=== PATIENT | male | born 1990 | race Caucasian/White ===

== ENCOUNTER 2019-11-04 15:44 | Emergency (ER) | payer SELFPAY ==
[2019-11-04 16:13] VITALS: BP 135/93; PULSE 103; RESP 16; TEMP 36.6; O2SAT 98; BMI 29.0
--- NOTE | 2019-11-04 16:38 | W.ED.ANIMALB ---
HPI - Animal Bite General: Chief Complaint: Animal Bite Stated Complaint: animal bites on hand Time Seen by Provider: 11/04/19 16:26 History of Present Illness: HPI narrative: And to pull a tick off dog and the dog bit him multiple times in his hands he has various abrasions bite whelan dogs up-to-date on vaccinations MD complaint: animal bite Onset (ago): minute(s) Animal: dog Description of animal: immunizations UTD Mechanism: bite and scratch Location: other (Hands) Pain description: sharp Severity scale (1-10): 3 Context: other (Try to get to call for dog) Associated symptoms: Deny chills, fever(s) or headache(s) Treatments prior to arrival: wound dressing(s) and irrigation Review of Systems Const: Denies: fever(s), chills or body aches Eyes: Denies: change in vision or blurry vision ENMT: Denies: throat pain or nasal congestion Card: Denies: chest pain or dyspnea on exertion Resp: Denies: dyspnea, productive cough or non-productive cough GI: Denies: abdominal pain, nausea or vomiting : Denies: difficulty urinating Musc: Denies: extremity pain Skin/Breast: Reports: other (Multiple bites to both hands and scratches to the arms); Denies: rash Neuro: Denies: headache(s) Psych: Denies: anxiety or depression Tony/Lymph: Denies: easy bruising All/Imm: Reports: other (Tetanus is up-to-date) PFSH ED PFSH: Social History Smoking and tobacco status: never smoked Physical Exam Const: COMMON NORMALS: no acute distress, average body habitus and patient oriented x3 HENMT: COMMON NORMALS: normocephalic HEAD & SCALP: normal to inspection and normocephalic FACE & SINUS: normal facial exam Eye: COMMON NORMALS: conjunctivae normal GENERAL EYE: appearance normal, both eyes and all related structures CONJUNCTIVA: Yes conjunctivae normal Neck/C-Spine: COMMON NORMALS: no JVD Chest: COMMONS NORMALS: normal inspection of the chest Resp: COMMON NORMALS: normal respiratory effort and clear to auscultation bilaterally AUSCULTATION: clear to auscultation bilaterally Cardio: COMMON NORMALS: no JVD, regular rate and regular rhythm RATE: regular rate RHYTHM: regular rhythm GI: COMMON NORMALS: Normal to inspection, nondistended, normoactive bowel sounds present Extremity: COMMON NORMALS: normal to inspection and full ROM Neuro: COMMON NORMALS: patient oriented x3 Skin: OTHER: Patient has multiple bites and scratches to his arms and to his hands has 2 superficial lacks to his left index finger and left thumb at the base of the nail Procedures Laceration Laceration 1: Site: hand Side (If applicable): left Size (cm): 1 Description: linear Depth: simple, single layer Size (cm): other (Glue) Course Vital Signs: Vital signs: Vital Signs Temperature 97.9 F 11/04/19 16:13 Pulse Rate 103 H 11/04/19 16:13 Respiratory Rate 16 11/04/19 16:13 Blood Pressure 135/93 11/04/19 16:13 Pulse Oximetry 98 11/04/19 16:13 Discharge Plan Discharge Patient Disposition: Home, Self-Care Clinical Impression: Dog bite Qualifiers: Encounter type: initial encounter Qualified Code(s): W54.0XXA - Bitten by dog, initial encounter Condition: Stable Prescriptions: New Augmentin 875-125 mg tablet 1 tab PO BID Qty: 14 RF: 0 No Action Multiple Vitamins Tablet 1 tab PO DAILY RF: 0 turmeric 400 mg Capsule 400 mg PO DAILY RF: 0 Emergen-C See Rx Instructions .ROUTE .COMPLEX RF: 0 omeprazole 1 tab PO DAILY RF: 0 Discharge Orders: Discharge Order (Routine); Ordered 11/04/19 Ordered By: Indio Millan Discharge Diet: Usual diet Discharge Activity: Resume usual activity Patient Instructions: Animal Bite (ED) Activity Restrictions/Additional Instructions: Follow-up with medical provider as directed. Take medications as prescribed. Return to the ER or your medical provider if condition worsens. Please read and understand discharge instructions. If any questions ask please. Keep wound clean and dry wear dressing for least 24 hours follow-up if signs symptoms of infection develop Coding Level of Care Code ED Artillery Meteorological Man for Gama Fwmichael Exam Comprehensive
[2019-11-04] MEDS: amoxicillin-clav 875-125 mg Tablet 1 TAB PO (16:46)
[2019-11-04 16:47] VITALS: BP 119/70; PULSE 102; RESP 16; O2SAT 97
== END 2019-11-04 16:50 | disposition home or self-care (01) ==
PROVIDERS: Emergency Provider Nurse Practitioner Family
DX: S61.452A Open bite of left hand, initial encounter (principal); S61.451A Open bite of right hand, initial encounter; S41.152A Open bite of left upper arm, initial encounter; S41.151A Open bite of right upper arm, initial encounter; S61.251A Open bite of left index finger without damage to nail, initial encounter; S61.052A Open bite of left thumb without damage to nail, initial encounter; W54.0XXA Bitten by dog, initial encounter
CPT/HCPCS: 12001; 12345; 99281; 99283

== ENCOUNTER 2020-01-05 15:27 | Emergency (ER) | payer SELFPAY ==
[2020-01-05 16:00] VITALS: BP 119/69; PULSE 68; RESP 18; TEMP 36.6; O2SAT 98; BMI 29.4
--- NOTE | 2020-01-05 18:38 | ED_ITS ---
HPI - Abdominal Pain General: Chief Complaint: Abdominal Pain Stated Complaint: ULCER FLARE UP Time Seen by Provider: 01/05/20 18:35 Source: patient Mode of arrival: ambulatory Limitations: no limitations History of Present Illness: HPI narrative: Well-appearing adult male comes in with midepigastric pain, nausea with vomiting of bile with streaked blood. Patient appears well. Patient appears in no acute distress. Patient does have abdominal tenderness and concern for blood in the vomitus. Patient does have a history of peptic ulcer disease. Associated Symptoms: Reports hematemesis and nausea Review of Systems General: Reports: 10 or more systems reviewed and unremarkable except in HPI and below GI: Reports: nausea and hematemesis PFS ED PFSH: Social History Smoking and tobacco status: current some day smoker cigarettes [ Other cigarette details: occasional- few times a month ] Quit status (tobacco): not considering quitting Second hand smoke exposure: No Alcohol intake: current Alcohol intake frequency: holidays/special occasions only History of recent travel: No Current gender identity: Male Physical Exam Const: COMMON NORMALS: no acute distress and patient oriented x3 GENERAL APPEARANCE: cooperative HENMT: COMMON NORMALS: normocephalic and Normal external nose present HEAD & SCALP: normal to inspection and normocephalic NOSE: Normal external nose present MOUTH: Normal oral and palatal mucosa present Eye: GENERAL EYE: appearance normal, both eyes and all related structures Neck/C-Spine: COMMON NORMALS: full ROM Chest: COMMONS NORMALS: normal inspection of the chest Resp: COMMON NORMALS: normal respiratory effort EFFORT & INSPECTION: Yes able to speak in complete sentences Cardio: COMMON NORMALS: regular rate and regular rhythm RATE: regular rate RHYTHM: regular rhythm GI: COMMON NORMALS: Soft to palpation PALPATION: Yes Soft to palpation and Yes Tenderness to palpation present (GI) (epigastric) Back/Pelvis: COMMON NORMALS: thoracic and lumbar spine normal to inspection Extremity: COMMON NORMALS: normal to inspection Neuro: COMMON NORMALS: patient oriented x3 and moves all extremities Psych: COMMON NORMALS: mental status grossly normal and cooperative Skin: COMMON NORMALS: no rashes or lesions noted GENERAL SKIN EXAM: no rashes or lesions noted Course Vital Signs: Vital signs: Vital Signs Temperature 97.6 F 01/05/20 19:58 Pulse Rate 60 01/05/20 21:13 Respiratory Rate 18 01/05/20 21:08 Blood Pressure 116/68 01/05/20 21:13 Pulse Oximetry 99 01/05/20 21:08 MDM - Abdominal Pain MDM Narrative: Medical decision making narrative: Patient comes in today for complaints of emesis with bile and streaks of blood in it. Patient does have a history of peptic ulcer disease that he has had treatment before in the past. Exam notes abdomen is soft with some midepigastric tenderness. Bowel sounds are present throughout. Vital signs are normal. Differential diagnosis includes GI bleed, peptic ulcer disease, esophagitis, gastritis. Laboratory values noted a normal hemoglobin hematocrit. CMP was normal. Lipase was normal. CT scan was ordered due to blood in emesis. CT scan noted no abnormalities. Patient was given Protonix for the treatment of his gastritis/peptic ulcer disease. Patient will be continued on pantoprazole and Carafate. Reviewed treatment with patient and his spouse who agreed to treatment plan and need for follow-up. Lab Data: Labs: Lab Results 01/05/20 01/05/20 01/05/20 Range/Units 19:21 19:21 19:36 WBC 7.8 (4.0-10.0) 10^3/ uL RBC 4.81 (4.1-5.3) 10^6/u L Hgb 14.3 (11.7-16.6) g/dL Hct 44.5 (42.0-52.0) % MCV 92.5 (80-94) fL MCH 29.7 (28.0-34.0) pg MCHC 32.1 (30.0-36.0) g/dL RDW 12.8 (12.1-15.1) % Plt Count 253 (130-400) 10^3/c mm MPV 10.0 (7.4-10.4) fL Neut % (Auto) 50.4 % Lymph % (Auto) 38.3 % [place] % (Auto) 8.1 % Eos % (Auto) 2.2 % Baso % (Auto) 0.6 % Neut # (Auto) 3.93 (1.8-7.7) 10^3/u L Lymph # (Auto) 3.0 (0.8-4.8) 10^3/u L [place] # (Auto) 0.6 (0.2-0.9) 10^3/u L Eos # (Auto) 0.2 (0.0-0.8) 10^3/u L Baso # (Auto) 0.1 (0.0-0.1) 10^3/u L Nucleated RBC % (a uto) 0 % Nucleated RBCs # 0.0 /100WBC Sodium 139 (136-145) mmol/L Potassium 4.0 (3.5-5.1) mmol/L Chloride 101 (98-107) mmol/L Carbon Dioxide 28 (22-29) mmol/L Anion Gap 14.0 (5-19) BUN 9 (6-20) mg/dL Creatinine 1.1 (0.7-1.2) mg/dL GFR Calculation 78.1 L (90-130) mL/min Glucose 90 (65-115) mg/dL Calculated Osmolal ity 284 L (285-295) mOsm/k g Calcium 9.6 (8.5-10.5) mg/dL Total Bilirubin 0.3 (0.15-1.2) mg/dL AST 28 (0-40) U/L ALT 45 H (0-41) U/L Alkaline Phosphata se 71 (40-130) IU/L Total Protein 7.5 (6.6-8.7) g/dL Albumin 5.1 (3.5-5.2) g/dL Globulin 2.4 (1.3-4.6) g/dL Lipase 23 (13-60) U/L Urine Color Yellow (Yellow) Urine Appearance Clear (CLEAR) Urine pH 6.5 (5-7) Ur Specific Gravit y 1.020 (1.005-1.030) Urine Protein Neg (Negative) Urine Glucose (UA) Norm (Normal) Urine Ketones Negative (Negative) Urine Blood Neg (Negative) Urine Nitrate Negative (Negative) Urine Bilirubin Neg (NEGATIVE) Urine Urobilinogen Norm (Negative) mg/dL Ur Leukocyte Ami ase Negative (Negative) Discharge Plan Discharge Patient Disposition: Home, Self-Care Clinical Impression: Peptic ulcer disease Condition: Stable Prescriptions: New pantoprazole 40 mg tablet,delayed release (DR/EC) 40 mg PO BID 10 Days Qty: 20 RF: 0 Carafate 1 gram tablet 1 gm PO TID 10 Days Qty: 30 RF: 0 Held omeprazole 40 mg PO DAILY RF: 0 Hold Instructions: Resume on 01/16/20. No Action multivitamin [Multiple Vitamins] Tablet 1 tab PO DAILY RF: 0 turmeric 400 mg Capsule 400 mg PO DAILY RF: 0 Emergen-C See Rx Instructions .ROUTE .COMPLEX PRN (Reason: Cold Symptoms) RF: 0 cetirizine 10 mg Tablet 10 mg PO DAILY RF: 0 Flonase Allergy Relief 50 mcg/actuation [place],Suspension See Rx Instructions .ROUTE .COMPLEX RF: 0 Vitamin D3 50 mcg (2,000 unit) Tablet 50 mcg PO DAILY RF: 0 Probiotic 20 billion cell Capsule 20,000 mmu cells PO DAILY RF: 0 Discharge Orders: Discharge Order (Routine); Ordered 01/05/20 Ordered By: Geoff Reaves Discharge Diet: Advance as tolerated Discharge Activity: Increase activity as tolerated Patient Instructions: Peptic Ulcer (ED) Activity Restrictions/Additional Instructions: Hold omeprazole. Take pantoprazole twice a day for the next 2 weeks. Try to take the pantoprazole 30 minutes prior to eating. Take Carafate 30 minutes before each meal. Drink plenty of fluids. Follow-up with surgeon for endoscopy for the stomach. Case management will contact you to help with referral. Follow-up with primary care as needed. Return to the ER for increase in bleeding or new concerns. Coding Level of Care Code ED Investment Underwriter for Gama Fwd Exam Comprehensive
--- NOTE | 2020-01-05 18:53 | CTR_ITS ---
PROCEDURE INFORMATION: Exam: CT Abdomen And Pelvis With Contrast Exam date and time: 01/05/2020 7:05 PM Age: 29 years old Clinical indication: Abdominal pain; Prior surgery; Additional info: Gi bleed, epigastric abd pain TECHNIQUE: Imaging protocol: Computed tomography of the abdomen and pelvis with intravenous contrast. Radiation optimization: All CT scans at this facility use at least one of these dose optimization techniques: automated exposure control; mA and/or kV adjustment per patient size (includes targeted exams where dose is matched to clinical indication); or iterative reconstruction. Contrast material: OMNI 300; Contrast volume: 95 ml; Contrast route: INTRAVENOUS (IV); COMPARISON: CT abdomen pelvis w con* [id number] 11/18/2016 7:25 PM RADIATION DOSE METRICS: Total DLP (mGy-cm): 715.56 FINDINGS: Liver: Normal. No mass. Gallbladder and bile ducts: Normal. No calcified stones. No ductal dilation. Pancreas: Normal. No ductal dilation. Spleen: Normal. No splenomegaly. Adrenals: Normal. No mass. Kidneys and ureters: Normal. No hydronephrosis. Stomach and bowel: Unremarkable. No obstruction. No mucosal thickening. Appendix: The appendix has been resected. Intraperitoneal space: Unremarkable. No free air. No significant fluid collection. Vasculature: Unremarkable. No abdominal aortic aneurysm. Lymph nodes: Unremarkable. No enlarged lymph nodes. Bladder: Unremarkable as visualized. Reproductive: Unremarkable as visualized. Bones/joints: Unremarkable. No acute fracture. Soft tissues: Unremarkable. CT/CT abdomen pelvis w con* [id number] IMPRESSION: No acute abnormality is seen in the abdomen or pelvis. Radiation Dose CTDIVOL = (mGy): DLP = 715.56 (mGy-cm)
[2020-01-05 19:37] LABS: Basophils # 0.1 10^3/uL (0.0-0.1); Basophils % 0.6 %; Eosinophils # 0.2 10^3/uL (0.0-0.8); Eosinophils % 2.2 %; Hematocrit 44.5 % (42.0-52.0); Hemoglobin 14.3 g/dL (11.7-16.6); Lymphocytes % 38.3 %; Mean Corpuscular HGB Conc 32.1 g/dL (30.0-36.0); Mean Corpuscular Hemoglobin 29.7 pg (28.0-34.0); Mean Corpuscular Volume 92.5 fL (80-94); Monocytes # 0.6 10^3/uL (0.2-0.9); Monocytes % 8.1 %; Neutrophils # 3.93 10^3/uL (1.8-7.7); Neutrophils % 50.4 %; Nucleated Red Blood Cells % 0 %; Platelet Count 253 10^3/cmm (130-400); Red Blood Count 4.81 10^6/uL (4.1-5.3); Red Cell Distribution Width 12.8 % (12.1-15.1); White Blood Count 7.8 10^3/uL (4.0-10.0)
[2020-01-05 19:51] LABS: Alanine Aminotransferase 45 U/L (0-41); Albumin Level 5.1 g/dL (3.5-5.2); Alkaline Phosphatase 71 IU/L (40-130); Aspartate Amino Transferase 28 U/L (0-40); Blood Urea Nitrogen 9 mg/dL (6-20); Calcium 9.6 mg/dL (8.5-10.5); Carbon Dioxide 28 mmol/L (22-29); Chloride 101 mmol/L (98-107); Globulin 2.4 g/dL (1.3-4.6); Glomerular Filtration Rate 78.1 mL/min (90-130); Glucose 90 mg/dL (65-115); Lipase 23 U/L (13-60); Osmolality Calculated 284 mOsm/kg (285-295); Sodium 139 mmol/L (136-145); Total Bilirubin 0.3 mg/dL (0.15-1.2); Total Protein 7.5 g/dL (6.6-8.7)
[2020-01-05 19:56] LABS: Add Urine Microscopic? NO
[2020-01-05 19:58] VITALS: BP 118/80; PULSE 68; RESP 18; TEMP 36.4; O2SAT 98
[2020-01-05 20:01] LABS: Bilirubin Urine Neg (NEGATIVE); Blood Urine Neg (Negative); Glucose Urine UA Norm (Normal); Ketones Urine Negative (Negative); Leukocyte Esterase Urine Negative (Negative); Nitrate Urine Negative (Negative); Protein Urine Neg (Negative); Urine Appearance Clear (CLEAR); Urine Color Yellow (Yellow); Urobilinogen Urine Norm (Negative); pH Urine 6.5 (5-7)
[2020-01-05] MEDS: iohexol 300 mg/mL 100 mL Btl IV (20:40)
[2020-01-05 21:08] VITALS: BP 116/68; PULSE 60; RESP 18; O2SAT 99
[2020-01-05 21:13] VITALS: BP 115/79; BP 116/68; BP 118/76; PULSE 60; PULSE 68; PULSE 74
[2020-01-05 22:18] VITALS: BP 114/88; PULSE 68; RESP 16; TEMP 36.2; O2SAT 99
--- NOTE | 2020-01-08 08:49 | DCPLANNER ---
business line manager had message to schedule a follow up appointment for patient with general surgery. business line manager called [facility], spoke with Meri, gave clinic patients information. business line manager was told that patients information would be printed and reviewed. Clinic will call patient with appointment information.
--- NOTE | 2020-01-09 12:09 | DCPLANNER ---
Patient has a follow up appointment scheduled for 2019 at 11:[address] Matta. Clinic will call patient with appointment information.
--- NOTE | 2020-01-31 13:18 | DCPLANNER ---
Patient did attend appointment scheduled for 01.12.20 with [facility].
== END 2020-01-05 22:22 | disposition home or self-care (01) ==
PROVIDERS: Emergency Medicine; Emergency Provider Nurse Practitioner Family
DX: K27.9 Peptic ulcer, site unspecified, unspecified as acute or chronic, without hemorrhage or perforation (principal); F17.210 Nicotine dependence, cigarettes, uncomplicated
CPT/HCPCS: 12345; 74177; 80053; 81003; 83690; 85025; 96361; 96374; 99283; Q9967

== ENCOUNTER 2020-04-03 22:42 | Inpatient (IN) | payer SELFPAY ==
[2020-04-03 22:57] VITALS: BP 128/87; PULSE 94; RESP 17; TEMP 36.9; O2SAT 95; BMI 29.9
[2020-04-03 23:00] LABS: Basophils # 0.1 10^3/uL (0.0-0.1); Basophils % 0.6 %; Eosinophils # 0.2 10^3/uL (0.0-0.8); Eosinophils % 2.1 %; Hematocrit 45.1 % (42.0-52.0); Hemoglobin 14.7 g/dL (11.7-16.6); Lymphocytes # 2.9 10^3/uL (0.8-4.8); Lymphocytes % 28.3 %; Mean Corpuscular HGB Conc 32.6 g/dL (30.0-36.0); Mean Corpuscular Hemoglobin 29.9 pg (28.0-34.0); Mean Corpuscular Volume 91.7 fL (80-94); Mean Platelet Volume 9.9 fL (7.4-10.4); Monocytes # 0.9 10^3/uL (0.2-0.9); Monocytes % 8.5 %; Neutrophils # 6.15 10^3/uL (1.8-7.7); Neutrophils % 60.1 %; Nucleated Red Blood Cells % 0 %; Platelet Count 280 10^3/cmm (130-400); Red Blood Count 4.92 10^6/uL (4.1-5.3); Red Cell Distribution Width 12.2 % (12.1-15.1); White Blood Count 10.2 10^3/uL (4.0-10.0)
--- NOTE | 2020-04-03 23:21 | W.ED.PSYCH ---
HPI - Psych General: Chief Complaint: Psychiatric Symptoms Stated Complaint: MHE Time Seen by Provider: 04/03/20 22:44 Source: patient Mode of arrival: ambulatory Limitations: no limitations History of Present Illness: HPI Narrative: 29-year-old male has a long history of depression states that he has been having increasing suicidal thoughts and severe depression. He states even thought about jumping out of car on his way here. He is voluntary and wanting to get out. He states that he just had multiple things going on and nothing specific. Denies any worsening or improving factors. Associated symptoms: Reports depression Review of Systems Const: Denies: fever(s), chills, body aches or change in appetite Eyes: Denies: blurry vision or eye discomfort ENMT: Denies: throat pain or dental pain Card: Denies: chest pain Resp: Denies: dyspnea GI: Denies: abdominal pain, nausea, vomiting or diarrhea : Denies: dysuria Musc: Denies: neck pain or back pain Skin/Breast: Denies: rash Neuro: Denies: headache(s) Psych: Reports: depression Tony/Lymph: Denies: easy bruising All/Imm: Denies: urticaria PFSH ED PFSH: Medical History ADHD KRISTOFER (generalized anxiety disorder) MDD (major depressive disorder), recurrent episode, moderate Panic attacks Surgical History S/P appendectomy Social History Smoking and tobacco status: former smoker Quit status (tobacco): has quit using tobacco Year quit tobacco: 2018 Second hand smoke exposure: No Alcohol intake: current Alcohol intake frequency: holidays/special occasions only History of recent travel: No Current gender identity: Male Physical Exam Const: COMMON NORMALS: no acute distress, patient oriented x3 and healthy appearing HENMT: COMMON NORMALS: normocephalic and atraumatic HEAD & SCALP: normocephalic and atraumatic Eye: COMMON NORMALS: Equal, round and reactive pupils present and EOMs intact bilaterally PUPIL: Yes Equal, round and reactive pupils present Neck/C-Spine: COMMON NORMALS: full ROM and supple Chest: COMMONS NORMALS: normal inspection of the chest and normal palpation of entire chest wall Resp: COMMON NORMALS: normal respiratory effort, No retractions, No use of accessory muscles and clear to auscultation bilaterally AUSCULTATION: clear to auscultation bilaterally Cardio: COMMON NORMALS: regular rate, regular rhythm and No murmurs present (Cardio) RATE: regular rate RHYTHM: regular rhythm GI: COMMON NORMALS: Normal to inspection, nondistended, normoactive bowel sounds present, Soft to palpation, non-tender and no masses PALPATION: Yes Soft to palpation Extremity: COMMON NORMALS: normal to inspection and full ROM Neuro: COMMON NORMALS: patient oriented x3, moves all extremities and no focal motor deficits Psych: COMMON NORMALS: mental status grossly normal, Normal thought process present and cooperative ATTITUDE: Yes Withdrawn affect present MOOD & AFFECT: Yes depressed mood THOUGHT PROCESS: Normal thought process present THOUGHT CONTENT: Yes Suicidality present Skin: COMMON NORMALS: no rashes or lesions noted and no wounds GENERAL SKIN EXAM: no rashes or lesions noted MDM - Psych MDM Narrative: Medical decision making narrative: Patient presents for suicidal ideation. Patient is well-appearing here and medically cleared. He is voluntary and I spoke to Dr. Macario and will admit the psychiatric unit. Lab Data: Labs: Lab Results 04/03/20 04/03/20 Range/Units 22:55 22:55 WBC 10.2 H (4.0-10.0) 10^3/ uL RBC 4.92 (4.1-5.3) 10^6/u L Hgb 14.7 (11.7-16.6) g/dL Hct 45.1 (42.0-52.0) % MCV 91.7 (80-94) fL MCH 29.9 (28.0-34.0) pg MCHC 32.6 (30.0-36.0) g/dL RDW 12.2 (12.1-15.1) % Plt Count 280 (130-400) 10^3/c mm MPV 9.9 (7.4-10.4) fL Neut % (Auto) 60.1 % Lymph % (Auto) 28.3 % [place] % (Auto) 8.5 % Eos % (Auto) 2.1 % Baso % (Auto) 0.6 % Neut # (Auto) 6.15 (1.8-7.7) 10^3/u L Lymph # (Auto) 2.9 (0.8-4.8) 10^3/u L [place] # (Auto) 0.9 (0.2-0.9) 10^3/u L Eos # (Auto) 0.2 (0.0-0.8) 10^3/u L Baso # (Auto) 0.1 (0.0-0.1) 10^3/u L Nucleated RBC % (a uto) 0 % Nucleated RBCs # 0.0 /100WBC Sodium 139 (136-145) mmol/L Potassium 3.6 (3.5-5.1) mmol/L Chloride 98 (98-107) mmol/L Carbon Dioxide 27 (22-29) mmol/L Anion Gap 17.6 (5-19) BUN 10 (6-20) mg/dL Creatinine 1.2 (0.7-1.2) mg/dL GFR Calculation 70.6 L (90-130) mL/min Glucose 103 (65-115) mg/dL Calculated Osmolal ity 287 (285-295) mOsm/k g Calcium 9.8 (8.5-10.5) mg/dL Total Bilirubin 0.2 (0.15-1.2) mg/dL AST 33 (0-40) U/L ALT 54 H (0-41) U/L Alkaline Phosphata se 86 (40-130) IU/L Total Protein 7.8 (6.6-8.7) g/dL Albumin 5.0 (3.5-5.2) g/dL Globulin 2.8 (1.3-4.6) g/dL Salicylates < 0.3 L (3-10) mg/dL Acetaminophen < 5.0 L (10-30) ug/mL Ethyl Alcohol < 10 (0-10) mg/dL Discharge Plan Discharge Patient Disposition: Admitted As Inpatient Clinical Impression: Suicidal ideation Condition: Stable Coding Level of Care Code ED Windows Laptop Technician for Gama Fwd Exam Comprehensive
--- NOTE | 2020-04-03 23:24 | PC.NURSE ---
Patient stated that his medications have not been working well over the past week. A comment has been noted for the nurses and doctor.
[2020-04-03] MEDS: LORazepam 1 mg Tablet PO (23:34)
[2020-04-03 23:36] LABS: Alanine Aminotransferase 54 U/L (0-41); Alkaline Phosphatase 86 IU/L (40-130); Anion Gap 17.6 (5-19); Aspartate Amino Transferase 33 U/L (0-40); Blood Urea Nitrogen 10 mg/dL (6-20); Calcium 9.8 mg/dL (8.5-10.5); Carbon Dioxide 27 mmol/L (22-29); Chloride 98 mmol/L (98-107); Globulin 2.8 g/dL (1.3-4.6); Glomerular Filtration Rate 70.6 mL/min (90-130); Glucose 103 mg/dL (65-115); Osmolality Calculated 287 mOsm/kg (285-295); Potassium 3.6 mmol/L (3.5-5.1); Sodium 139 mmol/L (136-145); Total Bilirubin 0.2 mg/dL (0.15-1.2); Total Protein 7.8 g/dL (6.6-8.7)
[2020-04-03 23:37] VITALS: PULSE 80; RESP 20
[2020-04-03 23:41] LABS: Acetaminophen < 5.0 ug/mL (10-30); Alcohol Level < 10 mg/dL (0-10); Salicylate < 0.3 mg/dL (3-10)
[2020-04-04 00:07] LABS: Amphetamines Screen Urine Negative (Negative); Barbiturates Screen Urine Negative (Negative); Benzodiazepines Screen Urine Negative (Negative); Cocaine Screen Urine Negative (Negative); Opiate Screen Urine Negative (Negative); PCP Screen Urine Negative (Negative); THC Screen Urine Positive (Negative)
[2020-04-04 01:16] VITALS: BP 126/84; PULSE 74; RESP 18; O2SAT 98
[2020-04-04 01:25] VITALS: BP 111/72; PULSE 77; RESP 18; TEMP 36.8; O2SAT 97
[2020-04-04] MEDS: trazodone 50 mg Tablet PO ×2 (02:24→02:25)
--- NOTE | 2020-04-04 05:41 | PC.NURSE ---
Patient admitted via ED by private vehicle. Reports feeling suicidal and fighting the urge to jump from a moving car this evening. He also states that he smokes marijuana every other day. The patient stated that he is having a hard time controlling his anger/frustration and does not know when his moods are out of control. This is causing significant trouble with children in the home, their discipline, and cohesiveness of his family. He is seeking help to cope with the struggles he is facing. He feels guilty for becoming rough with his stepdaughter.
[2020-04-04 06:00] VITALS: BP 93/55; PULSE 63; RESP 16; TEMP 36.6; O2SAT 98
[2020-04-04] MEDS: buPROPion XL (24 HR) 150 mg Tablet PO (08:29)
[2020-04-04] MEDS: pantoprazole DR 40 mg Tablet PO (08:29)
[2020-04-04] MEDS: cetirizine 10 mg Tablet PO (08:29)
[2020-04-04] MEDS: multivitamin therapeutic Tablet 1 TAB PO (08:29)
[2020-04-04] MEDS: cholecalciferol (vitamin D3) 1,000 unit Tablet 2000 UNIT PO (09:25)
[2020-04-04 14:00] VITALS: BP 86/60; PULSE 72; RESP 18; TEMP 37; O2SAT 99
--- NOTE | 2020-04-04 16:56 | PM.NHP ---
Providers/Chief Complaint Admitting Physician: Rolando Macario MD Chief Complaint: MHE HPI NPU History of Present Illness Briana Sagastume is a 29 year old male who presented to the emergency room with the following report: Chief Complaint: Psychiatric Symptoms Stated Complaint: MHE Time Seen by Provider: 04/03/20 22:44 Source: patient Mode of arrival: ambulatory Limitations: no limitations History of Present Illness: HPI Narrative: 29-year-old male has a long history of depression states that he has been having increasing suicidal thoughts and severe depression. He states even thought about jumping out of car on his way here. He is voluntary and wanting to get out. He states that he just had multiple things going on and nothing specific. Denies any worsening or improving factors. Associated symptoms: Reports depression. He was admitted to the neuropsychiatric unit for definitive treatment of those issues. He presents today reporting that this is his first psychiatric hospitalization and reports that as a kid he was in psychiatric care off and on likely for ADHD. Then he reports that he was not in treatment for most of his life until the last 3 years. He denies smoking cigarettes, drinking alcohol, illicit smoking marijuana but says he is working on his medical marijuana card but denies any other illicit drugs. Denies ever being to a rehab or having a DUI. He reports he knows he has anger issues and has dealt with anxiety. He told a very convoluted story that had lots of details of which the purpose of was unclear. But he reports that in October of this year his daughter was hospitalized for trichotillomania coordination with [facility] and [place] to remove stomach blockade and went on to say that she was almost at a point where her small intestine are part of it had to be removed secondary to volvulus or something. Then he went on to talk about how things are really stressful recently with deaths in his 's family and COVID-19 and some assignment that she had where she had to do these different exercises. It all boils down to the fact that at some point during that her doing exercises he reportedly was assisting her in an exercise and she had some bruises on her back and that started sometimes that he has. We discussed his medications which specifically was Wellbutrin XL 150 mg p.o. every morning and we discussed the risk benefits and alternatives of increasing the medication and he understood and agreed to proceed as is documented in this note. Psychiatric history: As above. Substance abuse history: As above. Family history: Denies any mental health, addiction or suicide attempts or completions in his family. Developmental history: He denied any issues with his or delivery. He did report significant delay developmentally. He endorses speech therapy and learning support and possible special education classes. Psychosocial history: He reports that his parents were together when he was born. Endorse having a couple of siblings. He reports that his childhood was decent denied any significant abuse. He endorsed graduating from high school but denied college. He endorsed being heterosexual with his longest relationship being with his . Reports a very long time, but he has a 4-year-old boy biologically but has adopted his 's daughter more or less, he has never been in the . He reports his longest job was in the [employer] and reports he currently lives in a trailer with his 2 children and his . Legal history: He denies any significant legal issues or peril. Medical history: He denies any significant issues. Meds NPU Home Medications Medication Instructions Recorded Confirmed Last Taken Type Emergen-C See Rx Instructions .ROUTE 11/04/19 04/04/20 Unknown History .COMPLEX PRN multivitamin [Multiple Vitamins] 1 tab PO DAILY 11/04/19 04/04/20 01/05/20 History omeprazole 40 mg PO DAILY 11/04/19 04/04/20 01/05/20 History turmeric 400 mg PO DAILY 11/04/19 04/04/20 01/05/20 History cetirizine 10 mg PO DAILY 01/05/20 04/04/20 01/05/20 History cholecalciferol (vitamin D3) 50 mcg PO DAILY 01/05/20 04/04/20 01/05/20 History [Vitamin D3] fluticasone propionate [Flonase See Rx Instructions .ROUTE .COMPLEX 01/05/20 04/04/20 01/05/20 History Allergy Relief] lactobacillus comb no.10 20,000 mmu cells PO DAILY 01/05/20 04/04/20 01/05/20 History [Probiotic] bupropion HCl 150 mg 24 hr tablet, 150 mg PO QAM 30 Days #30 tab 03/13/20 04/04/20 Unknown Rx extended release Allergies Allergy/AdvReac Type Severity Reaction Status Date / Time minoxidil [From Rogaine] Allergy Unknown Unknown Verified 03/13/20 13:43 PFSH NPU PFSH: Medical History ADHD KRISTOFER (generalized anxiety disorder) MDD (major depressive disorder), recurrent episode, moderate Panic attacks Surgical History S/P appendectomy Social History Smoking and tobacco status: former smoker Quit status (tobacco): has quit using tobacco Year quit tobacco: 2018 Second hand smoke exposure: No Alcohol intake: current Alcohol intake frequency: holidays/special occasions only History of recent travel: No Current gender identity: Male Mental Status Exam MSE Comments: This is an overweight versus obese white male with adequate dress, grooming and eye contact. No abnormal movements except for mild psychomotor retardation. Cooperative with exam and in mild distress. Speech was decreased in volume. Mood described as depressed affect congruent. Thought process organized. Thought content: Patient denied any suicidal or homicidal ideations, there were no delusions reported or noted, he denied any auditory visual hallucinations. Attention and concentration were intact and memory was reliable but no more formally tested. He is alert and oriented x3. Insight and judgment are limited. Vitals/I&O/Wt Last Vital Signs Temp 97.1 F L 04/04/20 22:00 Pulse 82 04/04/20 22:00 Resp 17 04/04/20 22:00 BP 127/83 04/04/20 22:00 Pulse Ox 96 04/04/20 22:00 Weight last 48 hrs Weight 86.636 kg Data NPU : 04/03/20 22:55 04/03/20 22:55 A&P Assessment and plan (1) Suicidal ideation: Status: Acute (2) Panic attacks: Status: Acute (3) KRISTOFER (generalized anxiety disorder): Status: Acute (4) ADHD: Status: Acute (5) MDD (major depressive disorder), recurrent episode, moderate: Status: Acute Additional A&P Information This is a 29-year-old white male with significant recent psychosocial challenges, history of some trauma in his childhood with possible PTSD, major depressive disorder anxiety who presents open to medication management. 1. Continue current medication. Increase Wellbutrin XL to 300 mg p.o. q. a.m. 2. Continue every 15 minute checks for safety. 3. Encourage individual, group and milieu therapy. 4. Encourage sober living treatment at the highest level of care to which he is willing to commit. Involuntary Hold Information 96 Hour Hold: 96 Hour Involuntary Admission: No Attestations NPU Medical Necessity Statement*: Inpatient hospitalization is medically necessary and the clinically appropriate intervention at this time. We will initiate/monitor medications and make changes as indicated. He will be in the hospital for over 2 midnights. Likely length of stay 2 to 4 days. Coding Level of Care Code Acute Acid Correction Hand for g Fwd Diagnoses Suicidal ideation R45.851 Panic attacks F41.0 KRISTOFER (generalized anxiety disorder) F41.1 ADHD F90.9 MDD (major depressive disorder), recurrent episode, moderate F33.1
[2020-04-04 22:00] VITALS: BP 127/83; PULSE 82; RESP 17; TEMP 36.2; O2SAT 96
[2020-04-04] MEDS: hyDROXYzine 25 mg Capsule 50 MG PO (23:19)
[2020-04-05 06:00] VITALS: BP 127/83; PULSE 82; RESP 17; TEMP 36.2; O2SAT 96
[2020-04-05 06:17] VITALS: BP 114/86; PULSE 71; RESP 18; TEMP 36.7; O2SAT 95
[2020-04-05] MEDS: buPROPion XL (24 HR) 150 mg Tablet PO ×2 (08:26→11:35)
[2020-04-05] MEDS: cholecalciferol (vitamin D3) 1,000 unit Tablet 2000 UNIT PO (08:26)
[2020-04-05] MEDS: fluticasone nasal spray 16gm Btl 1 SPRAY NASAL (08:27)
[2020-04-05] MEDS: pantoprazole DR 40 mg Tablet PO (08:27)
[2020-04-05] MEDS: cetirizine 10 mg Tablet PO (08:27)
[2020-04-05] MEDS: multivitamin therapeutic Tablet 1 TAB PO (08:27)
--- NOTE | 2020-04-05 09:06 | P.PN_ITS ---
Subjective NPU Subjective: Interval history: Briana presented the day reporting that he is glad that he came to the hospital and is feeling a little better. He denied any issues thus far from the increase of his Wellbutrin to 300 mg. We began a discussion about the possibilities of discharge after we have been able to see him for a couple days on the medication increased to identify whether he notes benefit. He reported an openness to the possibility of discharge as soon as it seems appropriate. Mental Status Exam MSE Comments: This is an overweight versus obese white male with adequate dres s, grooming and eye contact. No abnormal movements except for resolving psychomotor retardation. Cooperative with exam and in no acute distress. Speech was more normal rate and volume. Mood described as a little better, affect congruent. Thought process organized. Thought content: Patient denied any suicidal or homicidal ideations, there were no delusions reported or noted, he denied any auditory or visual hallucinations. Attention and concentration were intact and memory was reliable but no more formally tested. He is alert and oriented x3. Insight and judgment are improving. Vitals/I&O/Wt Last Vital Signs Temp 99.0 F 04/05/20 21:38 Pulse 110 H 04/05/20 21:38 Resp 16 04/05/20 21:38 BP 115/71 04/05/20 21:38 Pulse Ox 97 04/05/20 21:38 Data NPU : 04/03/20 22:55 04/03/20 22:55 A&P Additional A&P Information (1) Suicidal ideation: (2) Panic attacks: (3) KRISTOFER (generalized anxiety disorder): (4) ADHD: (5) MDD (major depressive disorder), recurrent episode, moderate: This is a 29-year-old white male with significant recent psychosocial challenges, history of some trauma in his childhood with possible PTSD, major depressive disorder anxiety who presents open to medication management. 1. Continue current medication. 2. Continue every 15 minute checks for safety. 3. Encourage individual, group and milieu therapy. 4. Encourage sober living treatment at the highest level of care to which he is willing to commit. Involuntary Hold Information 96 Hour Hold: 96 Hour Involuntary Admission: No Attestations NPU Medical Necessity Statement*: Inpatient hospitalization is medically necessary and the clinically appropriate intervention at this time. We will initiate/monitor medications and make changes as indicated. Likely length of stay 1-3 days. Coding Level of Care Code Acute Racing Secretary And Handicapper for Gama Mayer
[2020-04-05 14:00] VITALS: BP 108/76; PULSE 103; RESP 20; TEMP 36.3; O2SAT 94
[2020-04-05] MEDS: acetaminophen 325 mg Tablet 650 MG PO (17:16)
[2020-04-05 21:38] VITALS: BP 115/71; PULSE 110; RESP 16; TEMP 37.2; O2SAT 97
[2020-04-06] MEDS: hyDROXYzine 25 mg Capsule 50 MG PO (00:28)
[2020-04-06 06:00] VITALS: BP 115/64; PULSE 100; RESP 15; TEMP 36.6; O2SAT 98
[2020-04-06] MEDS: multivitamin therapeutic Tablet 1 TAB PO (09:17)
[2020-04-06] MEDS: pantoprazole DR 40 mg Tablet PO (09:17)
[2020-04-06] MEDS: fluticasone nasal spray 16gm Btl 1 SPRAY NASAL (09:17)
[2020-04-06] MEDS: buPROPion XL (24 HR) 150 mg Tablet 300 MG PO (09:17)
[2020-04-06] MEDS: cetirizine 10 mg Tablet PO (09:17)
[2020-04-06] MEDS: cholecalciferol (vitamin D3) 1,000 unit Tablet 2000 UNIT PO (09:18)
[2020-04-06] MEDS: acetaminophen 325 mg Tablet 650 MG PO (12:41)
--- NOTE | 2020-04-06 14:35 | PM.NDC ---
Diagnoses at Discharge Discharge Diagnosis (1) Suicidal ideation: Status: Resolved (2) Panic attacks: Status: Acute (3) KRISTOFER (generalized anxiety disorder): Status: Acute (4) ADHD: Status: Acute (5) MDD (major depressive disorder), recurrent episode, moderate: Status: Acute Reason for Visit Reason for Visit: MHE Brief History: Briana Sagastume is a 29 year old male who presented to the emergency room with the following report: Chief Complaint: Psychiatric Symptoms Stated Complaint: MHE Time Seen by Provider: 04/03/20 22:44 Source: patient Mode of arrival: ambulatory Limitations: no limitations History of Present Illness: HPI Narrative: 29-year-old male has a long history of depression states that he has been having increasing suicidal thoughts and severe depression. He states even thought about jumping out of car on his way here. He is voluntary and wanting to get out. He states that he just had multiple things going on and nothing specific. Denies any worsening or improving factors. Associated symptoms: Reports depression. He was admitted to the neuropsychiatric unit for definitive treatment of those issues. He presents today reporting that this is his first psychiatric hospitalization and reports that as a kid he was in psychiatric care off and on likely for ADHD. Then he reports that he was not in treatment for most of his life until the last 3 years. He denies smoking cigarettes, drinking alcohol, illicit smoking marijuana but says he is working on his medical marijuana card but denies any other illicit drugs. Denies ever being to a rehab or having a DUI. He reports he knows he has anger issues and has dealt with anxiety. He told a very convoluted story that had lots of details of which the purpose of was unclear. But he reports that in October of this year his daughter was hospitalized for trichotillomania coordination with the [facility] and [place] to remove stomach blockade and went on to say that she was almost at a point where her small intestine are part of it had to be removed secondary to volvulus or something. Then he went on to talk about how things are really stressful recently with deaths in his 's family and COVID-19 and some assignment that she had where she had to do these different exercises. It all boils down to the fact that at some point during that her doing exercises he reportedly was assisting her in an exercise and she had some bruises on her back and that started sometimes that he has. We discussed his medications which specifically was Wellbutrin XL 150 mg p.o. every morning and we discussed the risk benefits and alternatives of increasing the medication and he understood and agreed to proceed as is documented in this note. Psychiatric history: As above. Substance abuse history: As above. Family history: Denies any mental health, addiction or suicide attempts or completions in his family. Developmental history: He denied any issues with his or delivery. He did report significant delay developmentally. He endorses speech therapy and learning support and possible special education classes. Psychosocial history: He reports that his parents were together when he was born. Endorse having a couple of siblings. He reports that his childhood was decent denied any significant abuse. He endorsed graduating from high school but denied college. He endorsed being heterosexual with his longest relationship being with his . Reports a very long time, but he has a 4-year-old boy biologically but has adopted his 's daughter more or less, he has never been in the . He reports his longest job was in the [email or web address] and reports he currently lives in a trailer with his 2 children and his . Legal history: He denies any significant legal issues or peril. Medical history: He denies any significant issues. Hospital Course Hospital Course Briana presented to the emergency room with depression anxiety and substance abuse was admitted to the neuropsychiatric unit for definitive treatment of those issues. On the unit he quickly acclimated to the individual, group and milieu therapies prov. He was continued on his Wellbutrin XL which was increased to 300 mg ided. Every morning and with modest improvement. He had routine laboratory studies which were within normal limits except for a few outliers. Additionally he had a general medical evaluation which was also within normal limits and revealed no new acute processes. Discharge Summary At the time of discharge, he denied all lethality. His mood and anxiety were well managed. Endorse a plan to avoid all drugs of abuse and I will with the recommendations of the treatment team. He was evaluated in the hospital about and had obtained a maximum benefit from an inpatient hospitalization so he was discharged. Involuntary Hold Information 96 Hour Hold: 96 Hour Involuntary Admission: No Mental Status Exam MSE Comments: This is an overweight versus obese white male with adequate dress, grooming and eye contact. No abnormal movements except for resolving psychomotor retardation. Cooperative with exam and in no acute distress. Speech was more normal rate and volume. Mood described as pretty good, affect congruent. Thought process organized. Thought content: Patient denied any suicidal or homicidal ideations, there were no delusions reported or noted, he denied any auditory or visual hallucinations. Attention and concentration were intact and memory was reliable but none were formally tested. He is alert and oriented x3. Insight and judgment are improving. Discharge Data Vitals: Last Vital Signs Temp 97.9 F 04/06/20 06:00 Pulse 100 04/06/20 06:00 Resp 15 04/06/20 06:00 BP 115/64 04/06/20 06:00 Pulse Ox 98 04/06/20 06:00 Discharge Plan Discharge Patient Disposition: Home Condition: Stable Prescriptions: Continued multivitamin [Multiple Vitamins] Tablet 1 tab PO DAILY RF: 0 turmeric 400 mg Capsule 400 mg PO DAILY RF: 0 Emergen-C See Rx Instructions .ROUTE .COMPLEX PRN (Reason: Cold Symptoms) RF: 0 omeprazole capsule 40 mg PO DAILY RF: 0 Hold Instructions: Resume on 01/16/20. cetirizine 10 mg Tablet 10 mg PO DAILY RF: 0 fluticasone propionate [Flonase Allergy Relief] 50 mcg/actuation [place],Suspension See Rx Instructions .ROUTE .COMPLEX RF: 0 cholecalciferol (vitamin D3) [Vitamin D3] 50 mcg (2,000 unit) Tablet 50 mcg PO DAILY RF: 0 Probiotic 20 billion cell Capsule 20,000 mmu cells PO DAILY RF: 0 Discontinued bupropion HCl 150 mg tablet extended release 24 hr 150 mg PO QAM 30 Days Qty: 30 RF: 1 No Action bupropion HCl 150 mg tablet extended release 24 hr 150 mg PO DAILY 30 Days Qty: 30 RF: 3 bupropion HCl 75 mg tablet 75 mg PO DAILY 30 Days Qty: 30 RF: 3 Discharge Orders: Discharge Order (Routine); Ordered 04/06/20 Ordered By: Rolando Macario Referrals: Katherin Carvajal [facility] [Turf Manager] - Elizabeth Gray MD [[place]] - 05/08/20 2:00 pm Discharge Diet: Regular Discharge Activity: Resume usual activity Discharge Date/Time: 04/06/20 16:14 Discharge Attestations NPU Time Spent in Discharge Care*: less than 30 min Specific Discharge Activities: Specific discharge activities: educating patient, discussing with foster care case manager/social workers/dc planners, documenting/other paperwork and evaluating patient/reviewing data Coding Level of Care Code Acute Mechanical Engineering Specialist for Chg Fwd Diagnoses Suicidal ideation R45.851 Panic attacks F41.0 KRISTOFER (generalized anxiety disorder) F41.1 ADHD F90.9 MDD (major depressive disorder), recurrent episode, moderate F33.1
[2020-04-06 15:03] VITALS: BP 115/64; PULSE 100; RESP 15; TEMP 36.6; O2SAT 98
== END 2020-04-06 16:14 | disposition home or self-care (01) | DRG 880 ==
LOC: ER 23:46 → NP 04-04 00:15
PROVIDERS: Emergency Medicine; Admitting Provider Psychiatry & Neurology Psychiatry; Visit Provider Psychiatry & Neurology Psychiatry
DX: F41.8 Other specified anxiety disorders (principal); R45.851 Suicidal ideations; F41.0 Panic disorder [episodic paroxysmal anxiety]; F90.9 Attention-deficit hyperactivity disorder, unspecified type
CPT/HCPCS: 12345; 80053; 80306; 80307; 85025; 99284; Q3014

== ENCOUNTER 2020-11-20 19:25 | Emergency (ER) | payer SELFPAY ==
[2020-11-20 19:44] VITALS: BP 120/76; PULSE 100; RESP 15; TEMP 36.9; O2SAT 96; BMI 28.1
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
--- NOTE | 2020-11-20 20:15 | PC.NURSE ---
Right hand dressed with telfa and kerlix. Pt educated on wound care instructions.
== END 2020-11-20 20:15 | disposition home or self-care (01) ==
PROVIDERS: Emergency Provider Nurse Practitioner Family; PCP Family Medicine Adult Medicine
DX: T23.261A Burn of second degree of back of right hand, initial encounter (principal); Z87.891 Personal history of nicotine dependence; X08.8XXA Exposure to other specified smoke, fire and flames, initial encounter
CPT/HCPCS: 99282

== ENCOUNTER 2021-01-21 12:36 | Outpatient (CLI) | payer SELFPAY ==
--- NOTE | 2021-01-21 13:00 | XR_ITS ---
WS: [id number] Left wrist, 3 views, 01/21/2021 Clinical Data: Chronic left wrist pain follow dog bite crush injury 11/06/19 Comparison: None. Findings: No fractures or dislocations are seen. The carpal bones are intact. There is no soft tissue swelling. The distal radius and ulna are not remarkable. No radiopaque foreign bodies are seen. XR/XR wrist LT min 3V* [id number] Impression: Negative left wrist.
== END 2021-01-21 12:37 | disposition home or self-care (01) ==
LOC: RADWPI 12:42
PROVIDERS: PCP Family Medicine Adult Medicine; Visit Provider Family Medicine Adult Medicine
DX: M25.532 Pain in left wrist (principal); G89.29 Other chronic pain
CPT/HCPCS: 73110

== ENCOUNTER → 2021-02-09 14:39 | Outpatient (BNVA) | payer OTHER, SELFPAY | PROVIDERS: PCP Family Medicine Adult Medicine; Visit Provider Nurse Practitioner Family | DX: Z20.822 Contact with and (suspected) exposure to COVID-19 (principal); R11.10 Vomiting, unspecified | CPT/HCPCS: 87635 ==

== ENCOUNTER → 2021-03-25 09:28 | Outpatient (BNVA) | payer SELFPAY | PROVIDERS: PCP Family Medicine Adult Medicine; Referring Provider Family Medicine Adult Medicine; Visit Provider Specialist | DX: G56.02 Carpal tunnel syndrome, left upper limb (principal); G56.22 Lesion of ulnar nerve, left upper limb; Z87.891 Personal history of nicotine dependence | CPT/HCPCS: 95908 ==

== ENCOUNTER 2021-04-01 18:31 | Emergency (ER) | payer SELFPAY ==
[2021-04-01 18:39] VITALS: BP 127/66; PULSE 82; RESP 16; TEMP 36.4; O2SAT 98
--- NOTE | 2021-04-01 20:00 | W.ED.GENADLT ---
HPI - General Adult General: Chief complaint: General Medical Time Seen by Provider: 04/01/21 19:58 History of Present Illness: HPI narrative: Patient is a 30-year-old male comes to the ED with left arm pain. Patient has a history of carpal tunnel. Patient says couple days ago he was moving his arms and felt a pop in his left wrist. He then was having some pain and numbness in his third fourth and fifth digit of hand that radiated down to his elbow and up into his shoulder. He is currently seeing Dr. Dickerson the neurologist for his left arm numbness and tingling and is scheduled to have nerve conduction test done in the next couple weeks. Patient rates his pain currently a 7 out of 10. Patient has meloxicam that he takes for pain. Associated symptoms: Deny chest pain, dyspnea, headache(s), nausea, rash, palpitations or vomiting Review of Systems Const: Denies: fever(s), chills or fatigue Eyes: Denies: change in vision or eye discomfort ENMT: Denies: throat pain, odynophagia, nasal discharge or nasal congestion Card: Denies: chest pain, palpitations, edema, swelling of feet/ankles, dyspnea on exertion or orthopnea Resp: Denies: dyspnea, productive cough or non-productive cough GI: Denies: abdominal pain, nausea, vomiting, diarrhea, constipation or hematochezia : Denies: flank pain, difficulty urinating, dysuria or hematuria Musc: Reports: extremity pain (left lower arm); Denies: neck pain, back pain or extremity swelling Skin/Breast: Denies: rash or new lesions Neuro: Denies: headache(s), numbness in extremities or weakness in extremities PFS ED PFSH: Medical History ADHD Allergic rhinitis due to allergen Carpal tunnel syndrome of left wrist Forearm injury KRISTOFER (generalized anxiety disorder) GERD (gastroesophageal reflux disease) Injury of cutaneous sensory nerve at forearm level, left arm, subsequent encounter MDD (major depressive disorder), recurrent episode, moderate Panic attacks Strain of left trapezius muscle Surgical History S/P appendectomy Social History Smoking and tobacco status: former smoker Quit status (tobacco): has quit using tobacco Year quit tobacco: 2018 Second hand smoke exposure: No Alcohol intake: current Alcohol intake frequency: holidays/special occasions only History of recent travel: No Current gender identity: Male Physical Exam Const: COMMON NORMALS: no acute distress, patient oriented x3 and alert GENERAL APPEARANCE: cooperative and comfortable HENMT: COMMON NORMALS: normocephalic HEAD & SCALP: normocephalic MOUTH: Normal oral and palatal mucosa present THROAT: posterior oropharynx normal and uvula midline Neck/C-Spine: COMMON NORMALS: supple GENERAL: Yes normal visual inspection Resp: COMMON NORMALS: normal respiratory effort, No retractions, No use of accessory muscles and clear to auscultation bilaterally AUSCULTATION: clear to auscultation bilaterally Cardio: COMMON NORMALS: regular rate, regular rhythm, S1 normal heart sound present, S2 normal heart sound present, No gallops present (Cardio), No clicks present (Cardio), No murmurs present (Cardio) and Peripheral pulses 2+ throughout RATE: regular rate RHYTHM: regular rhythm HEART SOUNDS: S1 normal heart sound present and S2 normal heart sound present PERIPHERAL PULSES: Peripheral pulses 2+ throughout GI: COMMON NORMALS: Normal to inspection, nondistended, normoactive bowel sounds present, Soft to palpation, non-tender and no masses PALPATION: Yes Soft to palpation : COMMON NORMALS: Yes no CVA tenderness BLADDER/KIDNEY EXAM: Yes no CVA tenderness Back/Pelvis: COMMON NORMALS: no CVA tenderness Extremity: COMMON NORMALS: full ROM GENERAL: Yes normal exam except as noted LEFT UPPER EXTREMITY: Yes wrist Left wrist: Yes inspection (No visible deformity, swelling or ecchymosis seen.), Yes palpation (Nontender), Yes ROM (Full range of motion), Yes neurovascular exam (Intact) and Yes special tests Left wrist special tests: Phalen's test: Positive (Positive test) Neuro: COMMON NORMALS: patient oriented x3 and moves all extremities SENSORIUM/ORIENTATION: Yes alert Skin: GENERAL SKIN EXAM: dry skin Course Vital Signs: Vital signs: Vital Signs Temperature 97.6 F 04/01/21 18:39 Pulse Rate 79 04/01/21 21:49 Respiratory Rate 18 04/01/21 21:49 Blood Pressure 127/66 04/01/21 18:39 Pulse Oximetry 99 04/01/21 21:49 MDM - General Adult MDM Narrative: Medical decision making narrative: Patient is a 30-year-old male comes to the ED with left wrist and arm pain. Patient has a history of carpal tunnel and left wrist. Exam findings suggestive of carpal tunnel syndrome. Left wrist x-ray showed no acute fractures or findings. Patient diagnosed carpal tunnel syndrome discharged home with a prescription for prednisone to help with inflammation. Patient told to rest left wrist, apply cold pack and wear wrist brace help with symptoms. Take your previously prescribed meloxicam to help with pain as well. Return to ED precautions given. Follow-up with PCP in 7 to 10 days reevaluation. Patient understood agree with plan. Imaging Data^: Xray Ortho: Attestation: I personally reviewed and interpreted this imaging study as follows: My impression: Left wrist?no acute fractures or findings seen. Discharge Plan Discharge Patient Disposition: Home Clinical Impression: Carpal tunnel syndrome of left wrist Condition: Stable Prescriptions: New prednisone 20 mg tablet 20 mg PO BID 7 Days Qty: 14 RF: 0 No Action ascorbic acid-collagen PO RF: 0 biotin 1,000 mcg tablet,chewable 1,000 mcg PO DAILY RF: 0 meloxicam 15 mg tablet 15 mg PO DAILY Qty: 30 RF: 1 bupropion HCl 150 mg tablet extended release 24 hr 150 mg PO DAILY 30 Days Qty: 30 RF: 5 bupropion HCl 75 mg tablet 75 mg PO DAILY 30 Days Qty: 30 RF: 5 multivitamin [Multiple Vitamins] Tablet 1 tab PO DAILY RF: 0 Emergen-C See Rx Instructions .ROUTE .COMPLEX PRN (Reason: Cold Symptoms) RF: 0 omeprazole capsule 40 mg PO DAILY RF: 0 Hold Instructions: Resume on 01/16/20. turmeric 400 mg capsule 400 mg PO DAILY PRNRF: 0 cetirizine 10 mg Tablet 10 mg PO DAILY RF: 0 fluticasone propionate [Flonase Allergy Relief] 50 mcg/actuation [place],Suspension See Rx Instructions .ROUTE .COMPLEX RF: 0 cholecalciferol (vitamin D3) [Vitamin D3] 50 mcg (2,000 unit) Tablet 50 mcg PO DAILY RF: 0 Probiotic 20 billion cell Capsule 20,000 mmu cells PO DAILY RF: 0 Discharge Orders: Discharge ED (Routine); Ordered 04/01/21 Ordered By: Irving Chavez Referrals: West Pena MD [Primary Care Provider] - Discharge Diet: Regular Discharge Activity: Increase activity as tolerated Patient Instructions: Carpal Tunnel Syndrome Activity Restrictions/Additional Instructions: Follow-up with medical provider as directed in 7 days for reevaluation. Rest, ice and wear wrist splint to help with symptoms. Take medications as prescribed. Return to the ER or your medical provider if condition worsens. Please read and understand discharge instructions. Thank you for choosing [facility] for your healthcare needs today. Please realize this is an emergency room and that we are providing you with a medical screening exam and this may not be complete and all inclusive of all the testing and or work up that you may need to determine your ailment or severity of your illness. It is very important that you follow up as instructed or that you return to the Emergency Department should you have concerns or if your condition changes or worsens in any way. Coding Level of Care Code ED Plate Printer for Gama Fwmichael Exam Comprehensive
--- NOTE | 2021-04-01 20:26 | XRR_ITS ---
PROCEDURE INFORMATION: Exam: XR Left Wrist Exam date and time: 04/01/2021 8:26 PM Age: 30 years old Clinical indication: Pain; Wrist; Left; Patient HX: Bit by dog x 1 year; Additional info: Pain in wrist TECHNIQUE: Imaging protocol: XR Left wrist. Views: 3 or more views. COMPARISON: No relevant prior studies available. FINDINGS: Bones/joints: No underlying osseous abnormalities of the wrist. Joint spaces are preserved. Soft tissues: Normal. XR/XR wrist LT min 3V* [id number] IMPRESSION: No acute findings. Radiation Dose CTDIVOL = (mGy): DLP = (mGy-cm)
[2021-04-01 21:49] VITALS: PULSE 79; RESP 18; O2SAT 99
== END 2021-04-01 21:53 | disposition home or self-care (01) ==
PROVIDERS: Emergency Provider Physician Assistant; PCP Family Medicine Adult Medicine
DX: G56.02 Carpal tunnel syndrome, left upper limb (principal); Z87.891 Personal history of nicotine dependence
CPT/HCPCS: 73110; 99281

== ENCOUNTER → 2021-04-16 10:57 | Outpatient (BNVA) | payer SELFPAY | PROVIDERS: PCP Family Medicine Adult Medicine; Referring Provider Family Medicine Adult Medicine; Visit Provider Specialist | DX: G56.00 Carpal tunnel syndrome, unspecified upper limb (principal) | CPT/HCPCS: 73110 ==

== ENCOUNTER → 2021-04-23 10:35 | Outpatient (BNVA) | payer SELFPAY | PROVIDERS: PCP Family Medicine Adult Medicine; Referring Provider Specialist; Visit Provider Anesthesiology Pain Medicine | DX: M25.522 Pain in left elbow (principal); M51.16 Intervertebral disc disorders with radiculopathy, lumbar region; G56.22 Lesion of ulnar nerve, left upper limb; M62.838 Other muscle spasm; S54 Injury of nerves at forearm level; X58.XXXD Exposure to other specified factors, subsequent encounter | CPT/HCPCS: 99205 ==

== ENCOUNTER 2021-05-07 06:00 | Outpatient (RCR) | payer SELFPAY | END 2021-05-20 23:59 | disposition home or self-care (01) | LOC: MOT 06:00 | PROVIDERS: PCP Family Medicine Adult Medicine; Referring Provider Family Medicine Adult Medicine; Visit Provider Family Medicine Adult Medicine | DX: G56.22 Lesion of ulnar nerve, left upper limb (principal); S59.91 Unspecified injury of forearm; K21.9 Gastro-esophageal reflux disease without esophagitis; M62.838 Other muscle spasm | CPT/HCPCS: 97110; 97140; 97166 ==

== ENCOUNTER 2021-05-09 12:52 | Outpatient (CLI) | payer SELFPAY ==
--- NOTE | 2021-05-09 13:00 | MR_ITS ---
WS: [id number] MRI CERVICAL SPINE NONCONTRAST HISTORY: M54.12 - Radiculopathy, cervical region COMPARISON: None available. Technique: Multiplanar, multisequence noncontrast imaging of the cervical spine. Normal cervical alignment. There is very slight anterior wedging of T1. No retropulsion. Signal within the cervical cord is normal. Visualized posterior fossa is unremarkable. Craniocervical junction, C1 and C2 relationship, odontoid process and soft tissues are normal. C2-C3: Normal. C3-C4: Normal. C4-C5: Normal. C5-C6: Normal. C6-C7: Mild facet arthritis and hypertrophy. No stenosis. C7-T1: Normal. Mild mucoperiosteal thickening in the RIGHT maxillary sinus. MR/MR cervical spin wo con* [id number] IMPRESSION: 1. Quality of this examination is limited by body habitus. 2. No high-grade central or foraminal stenosis. 3. Very slight anterior wedging of T1.
--- NOTE | 2021-05-09 13:13 | XR_ITS ---
WS: [id number] Exam: XR cervical spine fl/ex [id number] Date/Time of Exam: 05/09/2021 2:00 PM Reason For Exam: M43.12 - Spondylolisthesis, cervical region Neutral position show straightening of the C-spine with loss of the normal lordotic curve. No flexion or extension instability. No fracture identified. Normal paraspinal soft tissues. XR/XR cervical spine fl/ex [id number] IMPRESSION: 1. Straightening of the C-spine. 2. No flexion or extension instability or subluxation.
--- NOTE | 2021-05-09 13:13 | XR_ITS ---
WS: [id number] Exam: XR lumbar spine f/e only [id number] Date/Time of Exam: 05/09/2021 2:00 PM Reason For Exam: M47.816 - Spondylosis without myelopathy or radiculopathy... No fracture or dislocation. No flexion or extension instability. Disc spaces are preserved. Posterior elements are intact. XR/XR lumbar spine f/e only [id number] IMPRESSION: 1. No flexion or extension instability noted.
--- NOTE | 2021-05-09 13:45 | MR_ITS ---
WS: [id number] MRI LUMBAR SPINE NONCONTRAST HISTORY: M48.062 - Spinal stenosis, lumbar region with neurogenic ... COMPARISON: None available. TECHNIQUE: Sagittal and axial multisequence imaging is submitted. Taking into consideration 7 cervical and 12 thoracic vertebral bodies there are 5 lumbar type vertebr al bodies. The sixth nonrib-bearing vertebral body will be labeled S1 and considered a lumbarized S1 vertebral body. Normal lumbar alignment with no compression fractures or marrow edema. Disc spaces and vertebral body heights are well-preserved. Conus terminates normally at L1-2 disc level. L1-L2: Normal. L2-L3: Normal. L3-L4: Normal. L4-L5: Mild facet and ligamentum flavum hypertrophy. There is a shallow RIGHT proximal foraminal disc protrusion. There is also mild disc encroachment upon the ventral thecal sac with a small amount of fluid in the facet joints. Disc abuts but does not displace the traversing L5 nerve roots. L5-S1: Mild annular disc bulging. Mild ligamentum flavum and facet arthritis with a small amount of f luid in the facet joints. Mild bilateral subarticular recess narrowing. Mild bilateral foraminal narr owing. Paravertebral soft tissues are negative. MR/MR lumbar spine wo con* [id number] IMPRESSION: 1. No high-grade central stenosis. There are 6 lumbar type vertebral bodies. T he sixth lumbar type vertebral body will be labeled a lumbarized S1 segment. 2. Proximal RIGHT foraminal small disc protrusion at L4-5. The disc bulging at L4-5 abuts but does not displace the traversing L5 nerve roots. 3. Mild bilateral subarticular recess and foraminal narrowing at L5-S1 due to ligamentum flavum and facet arthritis.
== END 2021-05-09 12:53 | disposition home or self-care (01) ==
PROVIDERS: PCP Family Medicine Adult Medicine; Visit Provider Anesthesiology Pain Medicine
DX: M43.12 Spondylolisthesis, cervical region (principal); M47.816 Spondylosis without myelopathy or radiculopathy, lumbar region; M54.12 Radiculopathy, cervical region; M48.062 Spinal stenosis, lumbar region with neurogenic claudication; M51.26 Other intervertebral disc displacement, lumbar region; M48.54XA Collapsed vertebra, not elsewhere classified, thoracic region, initial encounter for fracture
CPT/HCPCS: 72040; 72120; 72141; 72148

== ENCOUNTER 2021-05-21 08:19 | Outpatient (RCR) | payer SELFPAY | END 2021-06-20 23:59 | disposition home or self-care (01) | LOC: MOT 08:19 | PROVIDERS: PCP Family Medicine Adult Medicine; Referring Provider Family Medicine Adult Medicine; Visit Provider Family Medicine Adult Medicine | DX: G56.22 Lesion of ulnar nerve, left upper limb (principal); S59.919A Unspecified injury of unspecified forearm, initial encounter; K21.9 Gastro-esophageal reflux disease without esophagitis; M62.838 Other muscle spasm; X58.XXXA Exposure to other specified factors, initial encounter | CPT/HCPCS: 97110; 97140 ==

== ENCOUNTER → 2021-05-26 14:36 | Outpatient (BNVA) | payer SELFPAY | PROVIDERS: PCP Family Medicine Adult Medicine; Visit Provider Anesthesiology Pain Medicine | DX: M51.16 Intervertebral disc disorders with radiculopathy, lumbar region (principal); M47.816 Spondylosis without myelopathy or radiculopathy, lumbar region; M47.812 Spondylosis without myelopathy or radiculopathy, cervical region; S54 Injury of nerves at forearm level; W54.0XXD Bitten by dog, subsequent encounter; G56.22 Lesion of ulnar nerve, left upper limb; M62.838 Other muscle spasm | CPT/HCPCS: 99214 ==

== ENCOUNTER 2021-06-21 06:00 | Outpatient (RCR) | payer SELFPAY | END 2021-07-21 23:59 | disposition home or self-care (01) | LOC: MOT 06:00 | PROVIDERS: PCP Family Medicine Adult Medicine; Referring Provider Family Medicine Adult Medicine; Visit Provider Family Medicine Adult Medicine | DX: M62.838 Other muscle spasm (principal) | CPT/HCPCS: 97110; 97140 ==

== ENCOUNTER → 2021-07-07 14:22 | Outpatient (BNVA) | payer OTHER, SELFPAY | PROVIDERS: PCP Family Medicine Adult Medicine; Visit Provider Nurse Practitioner Family | DX: Z20.822 Contact with and (suspected) exposure to COVID-19 (principal) | CPT/HCPCS: 87635 ==

== ENCOUNTER → 2021-07-11 14:10 | Outpatient (BNVA) | payer OTHER, SELFPAY | PROVIDERS: PCP Family Medicine Adult Medicine; Visit Provider Nurse Practitioner Family | DX: Z20.822 Contact with and (suspected) exposure to COVID-19 (principal) | CPT/HCPCS: 87426; 87635 ==

== ENCOUNTER → 2021-08-22 09:17 | Outpatient (BNVA) | payer SELFPAY | PROVIDERS: PCP Family Medicine Adult Medicine; Visit Provider Family Medicine Adult Medicine | DX: Z00.00 Encounter for general adult medical examination without abnormal findings (principal); N18.2 Chronic kidney disease, stage 2 (mild) | CPT/HCPCS: 80053; 80061; 84443; 85025 ==

== ENCOUNTER 2021-09-26 20:28 | Emergency (ER) | payer MEDICAID, SELFPAY ==
[2021-09-26 20:39] VITALS: BP 116/67; PULSE 81; RESP 16; TEMP 36.7; O2SAT 97; BMI 25.7
--- NOTE | 2021-09-26 20:58 | ED_ITS ---
HPI - Animal Bite General: Chief Complaint: Animal Bite Stated Complaint: Spider Bites Time Seen by Provider: 09/26/21 20:57 History of Present Illness: Patient comes in for a dose of antibiotic that he was unable to get filled after seeing his physician today for possible spider bite. Patient appears in no pain. Patient appears nontoxic. Patient has 2 lesions to his left lower leg and one to his left wrist. Associated symptoms: Deny fever(s) Review of Systems General: Reports: 10 or more systems reviewed and unremarkable except in HPI and below Const: Denies: fever(s) Card: Denies: chest pain Resp: Denies: dyspnea Musc: Denies: extremity pain or extremity swelling Skin/Breast: Reports: new lesions [facility] ED PFSH: Medical History (Updated 09/26/21 @ 21:06 by RAMSES Rodriguez) ADHD Allergic rhinitis due to allergen CKD (chronic kidney disease) stage 2, GFR 60-89 ml/min Forearm injury Left, dog bite GERD (gastroesophageal reflux disease) Hyperlipidemia Insect bites and stings Lumbar disc disease with radiculopathy MDD (major depressive disorder), recurrent episode, moderate Psychiatric care TSH elevation Wellness examination Surgical History S/P appendectomy Social History Smoking and tobacco status: current every day smoker Quit status (tobacco): has quit using tobacco Year quit tobacco: 2018 Second hand smoke exposure: No Alcohol intake: current Alcohol intake frequency: holidays/special occasions only History of recent travel: No Current gender identity: Male Physical Exam Const: COMMON NORMALS: no acute distress Neck/C-Spine: COMMON NORMALS: full ROM Resp: COMMON NORMALS: normal respiratory effort Cardio: COMMON NORMALS: regular rate and regular rhythm RATE: regular rate RHYTHM: regular rhythm Extremity: LEFT UPPER EXTREMITY: Yes wrist (One 1 cm erythematous lesion) Left wrist: Yes inspection, Yes palpation and Yes ROM LEFT LOWER EXTREMITY: Yes lower leg (2 ecchymotic lesions approximately 2 cm diameter both) Left lower leg: Yes inspection, Yes palpation and Yes neurovascular exam Course Vital Signs: Vital signs: Vital Signs Temperature 98.1 F 09/26/21 20:39 Pulse Rate 81 09/26/21 20:39 Respiratory Rate 16 09/26/21 20:39 Blood Pressure 116/67 09/26/21 20:39 Pulse Oximetry 97 09/26/21 20:39 MDM - Animal Bite Medical Decision Making 31-year-old male patient comes in today with concerns of insect bite to the left lower leg and left wrist. On exam we note to ecchymotic lesions to his left lower leg, and a single erythematous lesion to his left wrist. Differential diagnosis includes spider bite, contusion, staph infection. Review of the pictures and of the lesions to his left lower leg I do suspect a spider bite. There is minimal erythema surrounding the wound and is mildly ecchymotic and tender to touch. 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 Discussed other insect such as mosquitoes, bedbugs, and other mites. Patient reported understanding. Patient was given his dose of doxycycline and a dose of dexamethasone to start treatment. Discharge Plan Discharge Patient Disposition: Home Clinical Impression: New medication therapy needed for condition Insect bite of left lower leg with local reaction Qualifiers: Encounter type: initial encounter Qualified Code(s): S80.862A - Insect bite (nonvenomous), left lower leg, initial encounter Condition: Stable Prescriptions: No Action ascorbic acid-collagen PO 0RF biotin 1,000 mcg tablet,chewable 1,000 mcg PO DAILY 0RF carisoprodol 250 mg tablet 250 mg PO .q8 PRN (Reason: muscle pain & spasm) Qty: 60 0RF Rx Instructions: Start with one at bedtime and then q 6 hr as needed. prednisone 20 mg tablet 60 mg PO DAILY Qty: 15 0RF doxycycline hyclate 100 mg capsule 100 mg PO BID Qty: 20 0RF hydroxyzine pamoate 50 mg capsule 50 mg PO Q8H PRN (Reason: anxiety and panic attacks) Qty: 90 0RF bupropion HCl 150 mg tablet extended release 24 hr 150 mg PO DAILY 30 Days Qty: 30 5RF bupropion HCl 75 mg tablet 75 mg PO DAILY 30 Days Qty: 30 5RF atorvastatin 40 mg tablet 40 mg PO DAILY Qty: 90 1RF multivitamin [Multiple Vitamins] Tablet 1 tab PO DAILY 0RF Emergen-C See Rx Instructions .ROUTE .COMPLEX PRN (Reason: Cold Symptoms) 0RF Rx Instructions: PRN omeprazole capsule 40 mg PO DAILY 0RF Hold Instructions: Resume on 01/16/20. turmeric 400 mg capsule 400 mg PO DAILY PRN0RF cetirizine 10 mg Tablet 10 mg PO DAILY 0RF fluticasone propionate [Flonase Allergy Relief] 50 mcg/actuation [place],Suspension See Rx Instructions .ROUTE .COMPLEX 0RF Rx Instructions: intranasally 1 spray in each nostril daily cholecalciferol (vitamin D3) [Vitamin D3] 50 mcg (2,000 unit) Tablet 50 mcg PO DAILY 0RF Probiotic 20 billion cell Capsule 20,000 mmu cells PO DAILY 0RF Discharge Orders: Discharge ED (Routine); Ordered 09/26/21 Ordered By: Geoff Reaves Referrals: West Pena MD [Primary Care Provider] - Discharge Diet: Usual diet Discharge Activity: Increase activity as tolerated Patient Instructions: Insect Bite or Sting (ED) Activity Restrictions/Additional Instructions: Continue routine medications as directed. Drink plenty of fluids of medication. Follow-up with primary care for further instruction. Coding Level of Care Code ED Associate Professor Of Musicology for Gama Mayer
[2021-09-26] MEDS: dexamethasone 4 mg Tablet 10 MG PO (21:13)
[2021-09-26] MEDS: doxycycline 100 mg Tablet PO (21:13)
[2021-09-26 21:17] VITALS: BP 120/69; PULSE 76; RESP 16; O2SAT 96
[2021-09-26 21:21] VITALS: BP 120/69; PULSE 76; RESP 16; O2SAT 96
== END 2021-09-26 21:21 | disposition home or self-care (01) ==
PROVIDERS: Emergency Provider Nurse Practitioner Family; PCP Family Medicine Adult Medicine
DX: S80.862A Insect bite (nonvenomous), left lower leg, initial encounter (principal); W57.XXXA Bitten or stung by nonvenomous insect and other nonvenomous arthropods, initial encounter
CPT/HCPCS: 99282; J8540

== ENCOUNTER → 2021-10-14 09:22 | Outpatient (BNVA) | payer MEDICAID, SELFPAY | PROVIDERS: PCP Family Medicine Adult Medicine; Visit Provider Family Medicine Adult Medicine | DX: R79.89 Other specified abnormal findings of blood chemistry (principal); S59.919A Unspecified injury of unspecified forearm, initial encounter; W57.XXXA Bitten or stung by nonvenomous insect and other nonvenomous arthropods, initial encounter | CPT/HCPCS: 86618; 86666; 86757 ==

== ENCOUNTER 2021-12-19 17:24 | Outpatient (CLI) | payer MEDICAID, SELFPAY ==
--- NOTE | 2021-12-19 17:29 | XRR_ITS ---
PROCEDURE INFORMATION: Exam: XR Cervical Spine Exam date and time: 12/19/2021 5:28 PM Age: 31 years old Clinical indication: Radicular pain (radiculopathy); Cervical region; Patient HX: No known injury; Additional info: M54.12 - radiculopathy, cervical region TECHNIQUE: Imaging protocol: Radiologic exam of the cervical spine. Views: 4 or 5 views. COMPARISON: CR XR cervical spine fl/ex [id number] 05/09/2021 2:14 PM FINDINGS: Bones/joints: The cervical spine maintains a normal lordotic curvature. No spondylolisthesis identified. C1 and C2 maintain normal alignment. The base of the odontoid is unremarkable. The vertebral bodies maintain normal height. The intervertebral discs maintain normal height. No significant degenerative changes identified. Soft tissues: Unremarkable. XR/XR cervical spine 4-5V [id number] IMPRESSION: 1. No vertebral body height loss or traumatic malalignment identified. 2. No significant degenerative changes identified.
== END 2021-12-19 17:25 | disposition home or self-care (01) ==
LOC: RAD 17:26
PROVIDERS: PCP Family Medicine Adult Medicine; Visit Provider Anesthesiology Pain Medicine
DX: M54.12 Radiculopathy, cervical region (principal)
CPT/HCPCS: 72050

== ENCOUNTER 2022-01-23 01:34 | Emergency (ER) | payer MEDICAID, SELFPAY ==
[2022-01-23 01:39] VITALS: BP 120/67; PULSE 86; RESP 16; TEMP 36.7; O2SAT 97; BMI 25.0
--- NOTE | 2022-01-23 02:35 | W.ED.GENADLT ---
HPI - General Adult General: Chief complaint: General Medical Stated complaint: Face numb\Neurlogical Problems Time Seen by Provider: 01/23/22 02:25 History of Present Illness: 31-year-old male presenting today with progressive weakness and numbness and tingling. Patient notes that he has had numbness tingling and weakness in his bilateral lower extremities as well as left upper extremity. He notes that his left upper extremity appears to be smaller in size than his right upper extremity. Patient has had extensive evaluation by neurology, neurosurgery, multiple ED's. Patient notes that he has had no answer. He would like to rule out MS, Parkinson's, Alzheimer's. Patient has had a recent full spinal MRI. Which demonstrated an ulnar neuropathy he says and degenerative joint disease in his lower back. However no other significant abnormalities. Patient has close interval follow-up available with neurology. Which he sees at this hospital. Review of Systems General: Reports: 10 or more systems reviewed and unremarkable except in HPI and below [facility] ED PFSH: Medical History (Updated 01/23/22 @ 02:38 by Aki Bridges DO) ADHD Allergic rhinitis due to allergen CKD (chronic kidney disease) stage 2, GFR 60-89 ml/min GERD (gastroesophageal reflux disease) Hyperlipidemia Lumbar disc disease with radiculopathy MDD (major depressive disorder), recurrent episode, moderate Psychiatric care Sinusitis, acute TSH elevation Surgical History S/P appendectomy Social History Smoking and tobacco status: never smoked Quit status (tobacco): has quit using tobacco Year quit tobacco: 2018 Second hand smoke exposure: No Alcohol intake: current Alcohol intake frequency: holidays/special occasions only History of recent travel: No Current gender identity: Male Physical Exam Const: COMMON NORMALS: no acute distress, patient oriented x3 and alert GENERAL APPEARANCE: cooperative ORIENTATION/CONSCIOUSNESS: Yes awake, Yes oriented to person, Yes oriented to place and Yes oriented to time HENMT: COMMON NORMALS: normocephalic, atraumatic, external ears normal, Normal external nose present and moist oral mucous membranes HEAD & SCALP: normal to inspection, normocephalic and atraumatic NOSE: Normal external nose present GENERAL EAR: hearing grossly impaired EXTERNAL EAR: Yes external ears normal Eye: COMMON NORMALS: Equal, round and reactive pupils present, EOMs intact bilaterally, conjunctivae normal and no scleral icterus GENERAL EYE: appearance normal, both eyes and all related structures EYELID: eyelids normal CONJUNCTIVA: Yes conjunctivae normal SCLERA: sclerae normal PUPIL: Yes Equal, round and reactive pupils present Neck/C-Spine: COMMON NORMALS: full ROM, supple and no JVD GENERAL: Yes normal visual inspection Lymph: LYMPHATIC: no lymphadenopathy noted and no lymphedema noted Chest: COMMONS NORMALS: normal inspection of the chest Resp: COMMON NORMALS: normal respiratory effort, No retractions and No use of accessory muscles Cardio: COMMON NORMALS: no JVD, regular rate and regular rhythm RATE: regular rate RHYTHM: regular rhythm GI: COMMON NORMALS: Normal to inspection, nondistended, normoactive bowel sounds present : COMMON NORMALS: Yes no CVA tenderness BLADDER/KIDNEY EXAM: Yes no CVA tenderness Back/Pelvis: COMMON NORMALS: no CVA tenderness and thoracic and lumbar spine normal to inspection Extremity: COMMON NORMALS: normal to inspection, full ROM and capillary refill normal GENERAL: Yes normal exam except as noted Neuro: COMMON NORMALS: patient oriented x3, CN's II-XII intact bilaterally, moves all extremities, no focal motor deficits, no sensory deficits noted and gait normal SENSORIUM/ORIENTATION: Yes alert, Yes oriented to person, Yes oriented to place and Yes oriented to time Psych: COMMON NORMALS: mental status grossly normal, Normal thought process present, cooperative and normal affect THOUGHT PROCESS: Normal thought process present Skin: COMMON NORMALS: no rashes or lesions noted and no wounds GENERAL SKIN EXAM: no rashes or lesions noted Course Vital Signs: Vital signs: Vital Signs Temperature 98.0 F 01/23/22 01:39 Pulse Rate 86 01/23/22 01:39 Respiratory Rate 16 01/23/22 01:39 Blood Pressure 120/67 01/23/22 01:39 Pulse Oximetry 97 01/23/22 01:39 Oxygen Delivery Me thod 01/23/22 01:39 [facility] - General Adult Medical Decision Making 31-year-old male presenting today with multiple vague neurologic complaints. Patient with extensive evaluation by neurology and neurosurgery as well as [facility] in [place]. No definitive etiology made. Patient's vital signs are within normal limits. Symptoms been progressive over months to years. Discussed limited utility in an ED evaluation for these kinds of symptoms. Recommended patient follow-up with his outpatient neurologist. Patient verbalized understanding. Low suspicion for MS, Parkinson's, Alzheimer's at this time. Symptoms are not consistent with acute stroke. No evidence of traumatic injury. Patient was medically cleared from an emergency standpoint. Strict return precautions were given. Recommended routine outpatient follow-up. Discharge Plan Discharge Patient Disposition: Home Clinical Impression: Lumbar disc disease with radiculopathy, Ulnar neuropathy at elbow of left upper extremity Condition: Stable Prescriptions: No Action ascorbic acid-collagen PO celecoxib [Celebrex] 200 mg capsule 200 mg PO DAILY Qty: 30 0RF hydroxyzine pamoate 50 mg capsule 50 mg PO Q8H PRN (Reason: anxiety and panic attacks) Qty: 90 0RF bupropion HCl 75 mg tablet 75 mg PO DAILY 30 Days Qty: 30 4RF bupropion HCl 150 mg tablet extended release 24 hr 150 mg PO DAILY 30 Days Qty: 30 4RF baclofen 10 mg tablet 10 mg PO .q6 PRN (Reason: muscle spasms) Qty: 60 0RF azithromycin 250 mg tablet See Rx Instructions PO .COMPLEX Qty: 6 0RF Rx Instructions: For 250 mg dose pack: take 500 mg today (day 1), then 250 mg for 4 days (days 2-5) PO guaifenesin 600 mg tablet extended release 12hr 600 mg PO BID PRN (Reason: congestion) Qty: 30 0RF fluticasone propionate [Flonase Allergy Relief] 50 mcg/actuation spray,suspension 2 spray intranasal BID PRN (Reason: nasal congestion) Qty: 16 1RF multivitamin [Multiple Vitamins] Tablet 1 tab PO DAILY Emergen-C See Rx Instructions .ROUTE .COMPLEX PRN (Reason: Cold Symptoms) Rx Instructions: PRN omeprazole capsule 40 mg PO DAILY Hold Instructions: Resume on 01/16/20. turmeric 400 mg capsule 400 mg PO DAILY PRN cetirizine 10 mg Tablet 10 mg PO DAILY cholecalciferol (vitamin D3) [Vitamin D3] 50 mcg (2,000 unit) Tablet 50 mcg PO DAILY Probiotic 20 billion cell Capsule 20,000 mmu cells PO DAILY Discharge Orders: Discharge ED (Routine); Ordered 01/23/22 Ordered By: Aki Bridges Referrals: West Pena MD [Primary Care Provider] - Discharge Diet: Usual diet Discharge Activity: Resume usual activity Patient Instructions: Opioid Safety Coding Level of Care Code ED [employer]
== END 2022-01-23 02:56 | disposition home or self-care (01) ==
PROVIDERS: Emergency Provider Emergency Medicine; PCP Family Medicine Adult Medicine
DX: M51.16 Intervertebral disc disorders with radiculopathy, lumbar region (principal); G56.22 Lesion of ulnar nerve, left upper limb; N18.2 Chronic kidney disease, stage 2 (mild); E78.5 Hyperlipidemia, unspecified; Z87.891 Personal history of nicotine dependence
CPT/HCPCS: 99281

== ENCOUNTER → 2022-05-13 09:57 | Outpatient (BNVA) | payer MEDICAID, SELFPAY | PROVIDERS: PCP Family Medicine Adult Medicine; Referring Provider Family Medicine Adult Medicine; Visit Provider Orthopaedic Surgery | DX: M25.512 Pain in left shoulder (principal) | CPT/HCPCS: 73030 ==

== ENCOUNTER → 2023-05-18 15:33 | Outpatient (BNVA) | payer MEDICAID, SELFPAY | PROVIDERS: PCP Family Medicine Adult Medicine; Visit Provider Family Medicine Adult Medicine | DX: R79.89 Other specified abnormal findings of blood chemistry (principal); F41.1 Generalized anxiety disorder; F41.0 Panic disorder [episodic paroxysmal anxiety]; N18.2 Chronic kidney disease, stage 2 (mild); F33.1 Major depressive disorder, recurrent, moderate | CPT/HCPCS: 80053; 84443; 85025 ==

== ENCOUNTER → 2023-08-18 08:10 | Outpatient (BNVA) | payer MEDICAID, SELFPAY | PROVIDERS: PCP Family Medicine Adult Medicine; Visit Provider Family Medicine Adult Medicine | DX: R79.89 Other specified abnormal findings of blood chemistry (principal); N18.2 Chronic kidney disease, stage 2 (mild); E78.5 Hyperlipidemia, unspecified | CPT/HCPCS: 80053; 80061; 83721; 84443 ==

== ENCOUNTER → 2023-09-12 12:44 | Outpatient (BNVA) | payer MEDICAID, SELFPAY | PROVIDERS: PCP Family Medicine Adult Medicine; Visit Provider Emergency Medicine | DX: J06.9 Acute upper respiratory infection, unspecified (principal) | CPT/HCPCS: 87400 ==

== ENCOUNTER → 2024-03-29 18:34 | Outpatient (BNVA) | payer MEDICAID, SELFPAY | PROVIDERS: PCP Family Medicine Adult Medicine; Visit Provider Family Medicine | DX: M54.9 Dorsalgia, unspecified (principal) | CPT/HCPCS: 81000 ==

== ENCOUNTER → 2024-10-16 14:43 | Outpatient (BNVA) | payer MEDICAID, SELFPAY | PROVIDERS: PCP Family Medicine Adult Medicine; Referring Provider Family Medicine; Visit Provider Nurse Practitioner Family | DX: B35.0 Tinea barbae and tinea capitis (principal); L81.4 Other melanin hyperpigmentation | CPT/HCPCS: 99203 ==

== ENCOUNTER 2024-10-25 15:38 | Outpatient (CLI) | payer MEDICAID, SELFPAY ==
--- NOTE | 2024-10-25 15:50 | US_ITS ---
WS: [id number] THYROID ULTRASOUND HISTORY: LT NECK LUMP COMPARISON: None available. Right lobe: 1.2 cm x 1.4 cm x 3.6 cm (w x ap x l). Volume: 2.9 cm3. Normal size and echotexture. No significant are dominant nodules are present. Left lobe: 1.2 cm x 1.5 cm x 3.4 cm (w x ap x l). Volume: 3.0 cm3. Normal size and echotexture. No significant or dominant nodules are present. Isthmus: 0.3 cm. US/US thyroid [id number] IMPRESSION: Normal thyroid ultrasound.
== END 2024-10-25 15:39 | disposition home or self-care (01) ==
LOC: RAD 15:39
PROVIDERS: PCP Family Medicine; Visit Provider Otolaryngology
DX: R22.1 Localized swelling, mass and lump, neck (principal)
CPT/HCPCS: 76536

== ENCOUNTER 2024-12-08 08:31 | Outpatient (CLI) | payer MEDICAID, SELFPAY ==
--- NOTE | 2024-12-08 08:41 | CT_ITS ---
WS: [id number] CT NECK TECHNIQUE: Contrast-enhanced CT of the neck with coronal and sagittal reformatted images. CLINICAL INFORMATION: SWELLING,MASS OR LUMP,NECK COMPARISON: None. DLP: 326.[address] scans at [facility] use at least one of these dose optimization techniques: automated exposure control; mA and/or kV adjustment per patient size (includes targeted exams where dose is matched to clinical indication); or iterative reconstruction. FINDINGS: Mastoid air cells are well aerated. Paranasal sinuses are well aerated. Small retention cyst RIGHT maxillary sinus. Normal posterior nasopharynx. Normal parapharyngeal fat. Normal parotid glands. Normal submandibular glands. Normal thyroid gland. No cervical lymphadenopathy. No evidence of supraglottic or glottic mass. Normal subglottic airway. Straightening of normal cervical lordosis. Incidental slightly low-lying cerebellar tonsils. CT/CT neck w con* [id number] IMPRESSION: 1. No acute neck findings
[2024-12-08] MEDS: iohexol 350 mg/mL 500 mL Btl (per mL) IV (08:57)
== END 2024-12-08 08:32 | disposition home or self-care (01) ==
PROVIDERS: PCP Family Medicine; Visit Provider Otolaryngology
DX: R22.1 Localized swelling, mass and lump, neck (principal)
CPT/HCPCS: 70491

== ENCOUNTER → 2025-01-01 16:06 | Outpatient (BNVA) | payer MEDICAID, SELFPAY | PROVIDERS: PCP Family Medicine; Visit Provider Specialist | DX: R07.81 Pleurodynia (principal); R20.0 Anesthesia of skin; R20.2 Paresthesia of skin | CPT/HCPCS: 72072 ==